=== PATIENT | male | born 1955 | race Caucasian/White ===

== ENCOUNTER 2017-08-08 19:44 | Emergency (ER) | payer BC ==
[2017-08-08] MEDS ORDERED: Albuterol/Ipratropium Neb 3 ML AERS HHN PRN (19:54)
--- NOTE | 2017-08-08 20:02 | ED Physician Chart ---
ED Chief Complaint/HPI - Patient Information Date Seen:: 08/08/17 Time Seen:: 19:50 Chief Complaint:: Increasing dyspnea for 2 days. History of Present Illness:: Brought in by private auto because of increasing dyspnea for 2 days. Pt states that he has h/o COPD and CHF. Pt has noticed increased dyspnea. Cough with yellow sputum production. No fever. Pt denies any chest pain. No increased ankle edema. No lightheadedness. Allergies:: Allergies Allergy/AdvReac Type Severity Reaction Status Date / Time No Known Allergies Allergy Verified 08/08/17 19:53 Vitals:: see Nurse Note. Historian:: Patient Family MD/PCP:: Dr. Sandoval LMP:: N/A Review:: Nurse's Note Reviewed ED Review of Systems - Review of Systems General/Constitutional: No fever, No chills, No weight loss, No weakness, No loss of appetite Skin: No rash, No bruising Head: No headache, No light-headedness Eyes: No loss of vision, No pain, No diplopia ENT: No earache, Nasal drainage, No sore throat Neck: No neck pain, No swelling, No thyromegaly, No stiffness, No mass noted Cardio Vascular: No chest pain, No palpitations, No edema Pulmonary: SOB, Cough, Sputum, Wheezing GI: No nausea, No vomiting, No diarrhea, No pain G/U: No dysuria, No frequency, No hematuria Endocrine: No polyuria (?), No polydipsia Psychiatric: No prior psych history Hematopoietic: No bruising, No lymphadenopathy Allergic/Immuno: No urticaria, No angioedema Neurological: No syncope, No focal symptoms, No weakness, No paresthesia, No dizziness, No confusion ED Past Medical History - Past Medical History Past Medical History: CHF, Asthma/COPD, Other (Cardiac dysrrhythmia. s/p implantable defrillator placement.) Family History: Heart disease (parents and brother), Diabetes Melitus (mother.) Social History: Non Smoker, No Alcohol, No Drug Use, , Lives Alone Surgical History: Cholecystectomy ( about 3 y/a.) Psychiatricy History: None Medication: Reviewed Family Medical History - Family Member Mother History Unknown: Yes ED Physical Exam - Physical Examination General/Constitutional: Awake, Well-developed, well-nourished, Alert, GCS 15, Non-toxic appearing, Ambulatory Other Gen/Cons comments:: Speaks clearly but with moderate respiratory distress. Head: Atraumatic Eyes: Lids, conjuctiva normal, PERRL, EOMI Skin: No ecchymosis, Well hydrated, No lymphadenopathy ENMT: External ears, nose nl, Nasal exam nl, Oropharynx nl Neck: Nontender, Full ROM w/o pain, No JVD, No nuchal rigidity, No mass, No stridor Respiratory: Nl effort/Exclusion Other Respiratory comments:: Diffuse decrease in breath sounds with trace exp. wheeze. No rales. Other Cardio Vascular comments:: Regular rhythm with mild tachycardia. HR 126. GI: No tenderness/rebounding/guarding, No organomegaly, Normal BS's, Nondistended Other GI comments:: Obese but soft. Extremities: No tenderness or effusion, No edema Neuro/Psych: Alert/oriented (oriented x 3), Mood normal, Normal gait, No focal deficits ED Labs/Radiology/EKG Results - Lab Results Results: Laboratory Tests 08/08/17 08/08/17 08/08/17 20:29 20:29 20:29 WBC 8.8 RBC 4.96 Hgb 16.6 Hct 49.2 MCV 99.2 H MCH 33.4 H MCHC Differential 33.7 RDW 13.5 Plt Count 142 L MPV 9.3 Neutrophils % 82.0 H Lymphocytes % 8.7 L Monocytes % 4.1 Eosinophils % 1.7 Basophils % 3.5 H PT 11.6 H INR 1.11 PTT (Actin FS) 28.5 Sodium 136 Potassium 3.1 L Chloride 103 Carbon Dioxide 24.4 Anion Gap 11.7 BUN 19 Creatinine 0.9 Est GFR ( Amer) > 60.0 Est GFR (Non-Af Amer) > 60.0 BUN/Creatinine Ratio 21.1 Glucose 131 H Calcium 9.2 Total Bilirubin 1.5 H AST 13 ALT 11 Alkaline Phosphatase 48 Creatine Kinase 75 Troponin I Total Protein 6.9 Albumin 4.3 Globulin 2.6 Albumin/Globulin Ratio 1.7 08/08/17 20:29 WBC RBC Hgb Hct MCV MCH MCHC Differential RDW Plt Count MPV Neutrophils % Lymphocytes % Monocytes % Eosinophils % Basophils % PT INR PTT (Actin FS) Sodium Potassium Chloride Carbon Dioxide Anion Gap BUN Creatinine Est GFR ( Amer) Est GFR (Non-Af Amer) BUN/Creatinine Ratio Glucose Calcium Total Bilirubin AST ALT Alkaline Phosphatase Creatine Kinase Troponin I 0.07 H* Total Protein Albumin Globulin Albumin/Globulin Ratio Laboratory Last Values WBC 8.8 Th/cmm (4.8-10.8) 08/08/17 20:29 RBC 4.96 Mil/cmm (4.30-5.70) 08/08/17 20:29 Hgb 16.6 gm/dL (12-16) 08/08/17 20: Hct 49.2 % (41.0-60) 08/08/17 20: MCV 99.2 fl (80-99) H 08/08/17 20: MCH 33.4 pg (26.0-30.0) H 08/08/17 20: MCHC Differential 33.7 pg (28.0-36.0) 08/08/17 20: RDW 13.5 % (11.5-20.0) 08/08/17 20: Plt Count 142 Th/cmm (150-400) L 08/08/17 20:29 MPV 9.3 fl 08/08/17 20:29 Neutrophils % 82.0 % (40.0-80.0) H 08/08/17 20: Lymphocytes % 8.7 % (20.0-50.0) L 08/08/17 20: Monocytes % 4.1 % (2.0-10.0) 08/08/17 20: Eosinophils % 1.7 % (0.0-5.0) 08/08/17: Basophils % 3.5 % (0.0-2.0) H 08/08/17 20:29 PT 11.6 SECONDS (9.5-11.5) H 08/08/17 20: INR 1.11 (0.5-1.4) 08/08/17 20: PTT (Actin FS) 28.5 SECONDS (26.0-38.0) 08/08/17 20:29 Sodium 136 mEq/L (136-145) 08/08/17 20:29 Potassium 3.1 mEq/L (3.5-5.1) L 08/08/17 20: Chloride 103 mEq/L (98-107) 08/08/17 20:29 Carbon Dioxide 24.4 mEq/L (21.0-31.0) 08/08/17 20:29 Anion Gap 11.7 (7.0-16.0) 08/08/17 20:29 BUN 19 mg/dL (7-25) 08/08/17 20:29 Creatinine 0.9 mg/dL (0.7-1.3) 08/08/17 20:29 Est GFR ( Amer) > 60.0 ml/min (>90) 08/08/17 20:29 Est GFR (Non-Af Amer) > 60.0 ml/min 08/08/17 20:29 BUN/Creatinine Ratio 21.1 08/08/17 20:29 Glucose 131 mg/dL (70-105) H 08/08/17 20:29 Calcium 9.2 mg/dL (8.6-10.3) 08/08/17 20: Magnesium 1.7 mg/dL (1.9-2.7) L 08/08/17 20:29 Total Bilirubin 1.5 mg/dL (0.3-1.0) H 08/08/17 20:29 AST 13 U/L (13-39) 08/08/17 20:29 ALT 11 U/L (7-52) 08/08/17 20:29 Alkaline Phosphatase 48 U/L (34-104) 08/08/17 20:29 Creatine Kinase 75 U/L (30-223) 08/08/17 20:29 Troponin I 0.07 ng/mL (0.01-0.05) H* 08/08/17 20:29 B-Natriuretic Peptide 968.0 pg/mL (5.0-100.0) H 08/08/17 20:29 Total Protein 6.9 gm/dL (6.0-8.3) 08/08/17 20:29 Albumin 4.3 gm/dL (4.2-5.5) 08/08/17 20:29 Globulin 2.6 gm/dL 08/08/17 20:29 Albumin/Globulin Ratio 1.7 (1.0-1.8) 08/08/17 20:29 - Radiology Results Results: PCXR: Based on my interpretation: Cardiomegaly with mild cephalization. Electronic device on L chest. Increased markings at R base related old scaring. Doubt pneumonia. Official report is pending. - EKG Interpretations EKG Time:: 20:08 Rate & Rhythm: Sinus tachycardia with VR 125. Occasional PVC's Comments:: LAE, incomplete LBBB. LVH. No acute ischemic changes. ED Septic Shock - . Is Septic Shock (SBP<90, OR Lactate>4 mmol\L) present?: No ED Reassessment (Disposition) - Reassessment Reassessment:: 2028 Pt has been repeatedly evaluated. Pt feels better after HHN with DuoNeb and can breathes more comfortably. Repeat exam revealed increase in breath sounds. No wheeze. 2244 Pt remains comfortable and stable. No dyspnea. No chest pain or discomfort. Remaining lab findings just became available. EKG, CXR, and lab findings have been reviewed with pt. Management plan has been discussed. 2354 Pt continues to improve. He is comfortable without respiratory distress, chest pain, or discomfort. O2 saturation at 96%. Pt was given Bactrim DS one tab po for acute bronchitis with yellow sputum production. Pt is alert and oriented x 3. Pt has been recommended to be admitted for further observation and management of his conditon, especially with his elevated troponin I and BNP levels. Pt instead decides to leave immediately AMA. Pt does not want further observation/management in hospital. Indications for further in hospital care, benefits, as well as risks, including risks for leaving AMA have been well explained. Pt still chooses to leave AMA and has signed AMA form. The above discussion and signing of AMA form have been witnessed by my nurse Marylin. Pt has been explained that if he changes his mind, he is welcomed to return anytime. Pt acknowledges understanding and appreciate our effort in caring for him. Reassessment Condition:: Improved - Diagnosis Diagnosis:: Acute exacerbation of COPD due to acute bronchitis. CHF related to ischemic cardiomyopathy. Hypokalemia Hypomagnesemia. - Patient Disposition Discharge/Transfer:: Against Medical Advice Time:: 23:55 Condition at Disposition:: Stable, Improved ED Discharge Plan - Patient Disposition Admit/Discharge/Transfer: AGAINST MEDICAL ADVICE
[2017-08-08] MEDS ORDERED: Albuterol/Ipratropium Neb 3 ML AERS HHN ONE (20:04)
[2017-08-08 20:36] LABS: % BASOPHILS 3.5 % (0.0-2.0); % EOSINOPHILS 1.7 % (0.0-5.0); % LYMPHOCYTES 8.7 % (20.0-50.0); % MONOCYTES 4.1 % (2.0-10.0); BASOPHILE ABSOLUTE 0.3 Th/cumm (0-0.2); EOSINOPHILE ABSOLUTE 0.1 Th/cmm (0.1-0.4); HEMATOCRIT 49.2 % (41.0-60); HEMOGLOBIN 16.6 gm/dL (12-16); LYMPHOCYTE ABSOLUTE 0.8 Th/cmm (1.5-3.0); MEAN CELL VOLUME 99.2 fl (80-99); MEAN CORPUSCULAR HEMOGLOBIN 33.4 pg (26.0-30.0); MEAN CORPUSCULAR HGB CONC 33.7 pg (28.0-36.0); MEAN PLATELET VOLUME 9.3 fl; MONOCYTE ABSOLUTE 0.4 Th/cmm (0.3-1.0); NEUTROPHILE ABSOLUTE 7.2 Th/cmm (1.8-8.0); PLATELET COUNT 142 Th/cmm (150-400); RED BLOOD COUNT 4.96 Mil/cmm (4.30-5.70); RED CELL DISTRIBUTION WIDTH 13.5 % (11.5-20.0); WHITE BLOOD COUNT 8.8 Th/cmm (4.8-10.8)
[2017-08-08 20:53] LABS: ALB/GLOB RATIO 1.7 (1.0-1.8); ALBUMIN 4.3 gm/dL (4.2-5.5); ALKALINE PHOSPHATASE 48 U/L (34-104); ANION GAP 11.7 (7.0-16.0); BILIRUBIN,TOTAL 1.5 mg/dL (0.3-1.0); BUN - UREA NITROGEN 19 mg/dL (7-25); CALCIUM SERUM 9.2 mg/dL (8.6-10.3); CARBON DIOXIDE 24.4 mEq/L (21.0-31.0); CHLORIDE 103 mEq/L (98-107); CREATININE - SERUM 0.9 mg/dL (0.7-1.3); CREATININE KINASE 75 U/L (30-223); GFR AFRICAN-AMERICAN > 60.0 ml/min (>90); GFR NON AFRICAN-AMERICAN > 60.0 ml/min; GLUCOSE 131 mg/dL (70-105); POTASSIUM SERUM 3.1 mEq/L (3.5-5.1); SGOT 13 U/L (13-39); SGPT/ALT 11 U/L (7-52); SODIUM SERUM 136 mEq/L (136-145); TOTAL PROTEIN,SERUM 6.9 gm/dL (6.0-8.3)
[2017-08-08 21:17] LABS: INR 1.11 (0.5-1.4); PROTHROMBIN TIME (TEST) 11.6 SECONDS (9.5-11.5)
[2017-08-08] MEDS ORDERED: Potassium Chloride 20 mEq ER Tab PO ONE ×2 (21:43→22:36)
[2017-08-08] MEDS ORDERED: Mag Sulfate 2gm/50mL Premix 2 GM/50 ML BAG IV ONE ×2 (22:23→22:37)
[2017-08-08] MEDS ORDERED: Sulfamethoxazole/TMP 800/160mg Tab PO ONE (22:51)
[2017-08-08] MEDS ORDERED: Sulfamethoxazole/TMP 800/160mg Tab ONE (22:53)
--- NOTE | 2017-08-09 08:59 | Diagnostic Imaging Report ---
Exam: Portable chest x-ray HISTORY: Dyspnea. Findings: Portable upright examination of the chest at 2042 hours reviewed no prior studies available comparison. The study demonstrates cardiomegaly superimposed congestion. Left-sided pacemaker is noted. The aortic arch is calcified. Bony thorax intact. There is evidence for ill-defined right basal peribronchial infiltrate early pneumonic process cannot be excluded follow-up examination recommended. IMPRESSION: 1. Cardiomegaly mild congestion 2. Question of right basilar infiltrate follow-up examination recommended.
== END 2017-08-08 23:59 | disposition left against medical advice (07) ==
LOC: ER 19:44
DX: J44.1 Chronic obstructive pulmonary disease with (acute) exacerbation (principal); J20.9 Acute bronchitis, unspecified; J44.0 Chronic obstructive pulmonary disease with (acute) lower respiratory infection; I50.9 Heart failure, unspecified; I25.5 Ischemic cardiomyopathy; E87.6 Hypokalemia; E83.42 Hypomagnesemia; Z90.49 Acquired absence of other specified parts of digestive tract
CPT/HCPCS: 99285; 96365; 96366; 96375; 94640; 93005; 71010; 84484; 83880; 36415; 85025; 85610; 82550; 83735; 80053; J3475; J2930